=== PATIENT | female | born 1930 | race Caucasian/White ===

== ENCOUNTER → 2016-08-12 | Outpatient (CLI) | payer OTHER ==
[~2016-08-12] MED LIST: ASPIRIN325 PO; CALCIUM 600 +1 EAC1 PO; CENTRUM SILVER1 EAC2 PO; HYDROCHLOROTH12.5 MG PO; IBUPROFEN 200200 M1 PO; MICARDIS40 MG PO; MULTIVITAMINS PO; MYLANTA TABLET1 TA1 PO; PEPCID PO; VALIUM5 MG PO; [UNRECOGNIZED DRUG - OTHER] PO
== END ==
LOC: MRI 11:53
DX: R29.810 Facial weakness (principal); G31.9 Degenerative disease of nervous system, unspecified